=== PATIENT | female | born 1945 | race Hispanic/Latino ===

== ENCOUNTER → 2020-01-28 | Outpatient (CLI) | payer MEDICARE ==
[~2020-01-28] MED LIST: REGADENOSON 0.4 MG/5 ML SYR IV ONE
--- NOTE | 2020-01-29 06:52 | Myoview Stress Test ---
DATE OF STUDY: 01/28/2020 10:01:00 Stress Test - Treadmill ONLY PROCEDURE TITLE: Rest stress single isotope SPECT imaging with pharmacologic stress and gated SPECT imaging. INDICATION: Chest pain. PROCEDURE DETAIL: Pharmacologic stress testing was performed with regadenoson per the usual protocol. Heart rate was 57 beats per minute at rest and bridgett to 78 beats per minute at stress. Blood pressure remained relatively stable at 148/72 at rest and 147/62 at peak stress. This is a normal response for regadenoson. The resting 12-lead electrocardiogram shows normal sinus rhythm with first degree AV block and a nonspecific intraventricular conduction delay. There were no ST changes suggestive of ischemia nor were there any cardiac arrhythmias. Myocardial perfusion imaging was performed at rest following injection of 11 millicuries of tetrofosmin. At peak pharmacologic effect, the patient was injected with 30.9 millicuries of tetrofosmin. Gated post-stress tomographic imaging was performed. FINDINGS: The overall study quality is fair. Left ventricular size appears normal at both rest and stress. SPECT images demonstrate normal myocardial perfusion. Gated SPECT imaging reveals normal myocardial thickening and wall motion. The left ventricular ejection fraction was calculated to be greater than 70%. IMPRESSION: Normal myocardial perfusion. Normal left ventricular systolic function. Rajendra Guthrie DO BM/MODL /[id number]
== END ==
LOC: NM 09:42
PROVIDERS: ATTEND Internal Medicine Cardiovascular Disease
DX: R07.9 Chest pain, unspecified (principal)
CPT/HCPCS: 78452; 93017; 93306; A9502; J2785